=== PATIENT | male | born 1950 | race Caucasian/White ===

== ENCOUNTER → 2018-01-25 | Outpatient (CLI) | payer BC, SELFPAY ==
[~2018-01-25] MED LIST: ACYC5TO15G TOP; ALBU90OI INH; ALBU90OI61 INH; ASPI325; ASPI81CH PO; ASTRAGALUS; ASTRAGALUS EXT100 GM; BELPTAB PO; BENTYL20 MG PO; BUPR150ER PO; BUPR150T2; BUPR150T2 PO; BUSP5 PO; Budeprion Sr150 MG; CHOL10002 PO; CIPR500 PO; CYCL10 PO; DHEA 50 MG; DULO30 PO; Depo-Testos200 MG/ML INJ; Dicyclomine HCl20 MG PO; ESOM20; FAMO20 PO; FIBER LAXATIVE PO; FISH1000 PO; HYDACE5 PO; LIDO2L TOP; LORA.5 PO; METO10 PO; METO5A; MIRT30; MIRT30 PO; MULVITMIND PO; Multiple Vitam1 EAC1; NASACORT10.8 ML; NIAC500 PO; NIACIN FLUSH-F400 MG PO; OMEP20ER PO; OMEP40CA12 PO; ONDA4 PO; OTC MEDS; OXYACE5T; OXYACE5T PO; OXYC30 PO; POLY500 PO; PROC25S; PROC25S PR; PROM25; PROM25 PO; PROM25S PR; Phenergan25 MG PR; RXOXYACE PO; TAMS.4ER PO; TRAM50 PO; Ultram50 MG PO; VITAMIN D32000 UNIT; Voltaren100 GM TP; Zofran Odt4 MG SL; Zofran Odt8 MG SL
[2018-01-25 13:49] LABS: U Amphetamine Screen Not Detected; U Barbituate Screen Not Detected; U Benzodiazapine Screen Not Detected; U Cocaine Screen Not Detected; U Methadone Screen Not Detected; U Methamphetamine Screen Not Detected; U Opiates Screen Not Detected
[2018-01-25 13:50] LABS: U Buprenorphine Screen Not Detected; U Cannabinoids Screen DETECTED; U Oxycodone Screen DETECTED; U Phencyclidine Screen Not Detected; U Propoxyphene Screen Not Detected
== END | disposition home or self-care (01) ==
LOC: LAB 12:58 → LAB SHORT 12:58
PROVIDERS: Internal Medicine Hematology & Oncology
DX: Z51.81 Encounter for therapeutic drug level monitoring (principal); Z79.899 Other long term (current) drug therapy

== ENCOUNTER → 2018-08-09 | Outpatient (CLI) | payer BC ==
[2018-08-09 12:47] LABS: U Cannabinoids Screen DETECTED; U Oxycodone Screen DETECTED
[2018-08-09 12:48] LABS: U Amphetamine Screen Not Detected; U Barbituate Screen Not Detected; U Benzodiazapine Screen Not Detected; U Buprenorphine Screen Not Detected; U Cocaine Screen Not Detected; U Methadone Screen Not Detected; U Methamphetamine Screen Not Detected; U Opiates Screen Not Detected; U Phencyclidine Screen Not Detected; U Propoxyphene Screen Not Detected
== END | disposition home or self-care (01) ==
LOC: LAB 12:18 → LAB SHORT 12:18
PROVIDERS: Internal Medicine Hematology & Oncology
DX: Z51.81 Encounter for therapeutic drug level monitoring (principal); Z79.899 Other long term (current) drug therapy
CPT/HCPCS: G0480

== ENCOUNTER → 2018-11-01 | Outpatient (CLI) | payer BC ==
[2018-11-01 13:41] LABS: U Amphetamine Screen Not Detected; U Barbituate Screen Not Detected; U Benzodiazapine Screen Not Detected; U Buprenorphine Screen Not Detected; U Cannabinoids Screen DETECTED; U Cocaine Screen Not Detected; U Methadone Screen Not Detected; U Methamphetamine Screen Not Detected; U Opiates Screen Not Detected; U Oxycodone Screen DETECTED; U Phencyclidine Screen Not Detected; U Propoxyphene Screen Not Detected
== END | disposition home or self-care (01) ==
LOC: LAB SHORT 12:33 → LAB 12:33
PROVIDERS: Internal Medicine Hematology & Oncology
DX: F11.20 Opioid dependence, uncomplicated (principal); Z79.899 Other long term (current) drug therapy

== ENCOUNTER 2020-11-05 12:20 | Day surgery (SDC) | payer BC ==
[~2020-11-05] VITALS: Ht 177.8 cm; Wt 76.6 kg
== END 2020-11-05 14:51 | disposition home or self-care (01) ==
LOC: ORSCSDS 12:20
PROVIDERS: Surgery
PROC: 0DBH8ZX Excision of Cecum, Via Natural or Artificial Opening Endoscopic, Diagnostic (ICD-10-PCS; principal; 2020-11-05 13:30)
DX: Z12.11 Encounter for screening for malignant neoplasm of colon (principal); Z86.010 Personal history of colon polyps; D12.0 Benign neoplasm of cecum; K21.9 Gastro-esophageal reflux disease without esophagitis; E78.5 Hyperlipidemia, unspecified; I10 Essential (primary) hypertension; E03.9 Hypothyroidism, unspecified; Z79.899 Other long term (current) drug therapy; Z79.82 Long term (current) use of aspirin
CPT/HCPCS: 88305; J2704; J7040; J7120

== ENCOUNTER → 2021-07-08 | Outpatient (CLI) | payer BC ==
[2021-07-08 13:57] LABS: U Amphetamine Screen Not Detected; U Barbituate Screen Not Detected; U Benzodiazapine Screen Not Detected; U Buprenorphine Screen Not Detected; U Cannabinoids Screen DETECTED; U Cocaine Screen Not Detected; U Methadone Screen Not Detected; U Methamphetamine Screen Not Detected; U Opiates Screen Not Detected; U Phencyclidine Screen Not Detected
[2021-07-08 13:58] LABS: U Oxycodone Screen DETECTED; U Propoxyphene Screen Not Detected
== END | disposition home or self-care (01) ==
LOC: LAB 12:27 → LAB SHORT 12:27
PROVIDERS: Internal Medicine Hematology & Oncology
DX: Z51.81 Encounter for therapeutic drug level monitoring (principal); Z79.899 Other long term (current) drug therapy

== ENCOUNTER → 2021-12-15 | Outpatient (CLI) | payer BC | END | disposition home or self-care (01) | LOC: LAB SHORT 14:35 | DX: L57.0 Actinic keratosis (principal) | CPT/HCPCS: 88305 ==

== ENCOUNTER → 2022-02-17 | Outpatient (CLI) | payer BC ==
[2022-02-17 16:07] LABS: U Cannabinoids Screen DETECTED; U Opiates Screen DETECTED
[2022-02-17 16:08] LABS: U Amphetamine Screen Not Detected; U Barbituate Screen Not Detected; U Benzodiazapine Screen Not Detected; U Buprenorphine Screen Not Detected; U Cocaine Screen Not Detected; U Methadone Screen Not Detected; U Methamphetamine Screen Not Detected; U Oxycodone Screen DETECTED; U Phencyclidine Screen Not Detected; U Propoxyphene Screen Not Detected
== END | disposition home or self-care (01) ==
LOC: LAB SHORT 08:17 → LAB 08:17
PROVIDERS: Internal Medicine Hematology & Oncology
DX: Z51.81 Encounter for therapeutic drug level monitoring (principal); Z79.899 Other long term (current) drug therapy

== ENCOUNTER → 2022-03-17 | Outpatient (CLI) | payer BC ==
[2022-03-17 16:08] LABS: U Amphetamine Screen Not Detected; U Barbituate Screen Not Detected; U Benzodiazapine Screen Not Detected; U Buprenorphine Screen Not Detected; U Cannabinoids Screen DETECTED; U Cocaine Screen Not Detected; U Methadone Screen Not Detected; U Methamphetamine Screen Not Detected; U Opiates Screen DETECTED; U Oxycodone Screen DETECTED; U Phencyclidine Screen Not Detected; U Propoxyphene Screen Not Detected
[2022-03-22 08:09] LABS: TRICYCLIC ANTIDEP Negative ng/mL (Cutoff=100)
== END | disposition home or self-care (01) ==
LOC: LAB 10:13 → LAB SHORT 10:13
PROVIDERS: Internal Medicine Hematology & Oncology
DX: Z51.81 Encounter for therapeutic drug level monitoring (principal); Z79.899 Other long term (current) drug therapy

== ENCOUNTER → 2022-04-14 | Outpatient (CLI) | payer BC ==
[2022-04-14 13:55] LABS: U Amphetamine Screen Not Detected; U Barbituate Screen Not Detected; U Benzodiazapine Screen Not Detected; U Buprenorphine Screen Not Detected; U Cannabinoids Screen DETECTED; U Cocaine Screen Not Detected; U Methadone Screen Not Detected; U Methamphetamine Screen Not Detected; U Opiates Screen DETECTED; U Oxycodone Screen DETECTED; U Phencyclidine Screen Not Detected; U Propoxyphene Screen Not Detected
[2022-04-18 14:08] LABS: CARBOXY-THC >346 (.)
== END | disposition home or self-care (01) ==
LOC: LAB SHORT 11:37 → LAB 11:37
PROVIDERS: Internal Medicine Hematology & Oncology
DX: Z51.81 Encounter for therapeutic drug level monitoring (principal); Z79.899 Other long term (current) drug therapy

== ENCOUNTER → 2022-05-12 | Outpatient (CLI) | payer BC ==
[2022-05-12 13:44] LABS: U Amphetamine Screen Not Detected
[2022-05-12 13:45] LABS: U Barbituate Screen Not Detected; U Benzodiazapine Screen Not Detected; U Buprenorphine Screen Not Detected; U Cannabinoids Screen DETECTED; U Cocaine Screen Not Detected; U Methadone Screen Not Detected; U Methamphetamine Screen Not Detected; U Opiates Screen DETECTED; U Oxycodone Screen DETECTED; U Phencyclidine Screen Not Detected; U Propoxyphene Screen Not Detected
[2022-05-18 15:10] LABS: CARBOXY-THC >403 (.)
== END | disposition home or self-care (01) ==
LOC: LAB SHORT 10:30 → LAB 10:30
PROVIDERS: Internal Medicine Hematology & Oncology
DX: Z51.81 Encounter for therapeutic drug level monitoring (principal); Z79.899 Other long term (current) drug therapy
CPT/HCPCS: G0480

== ENCOUNTER → 2022-06-08 | Outpatient (CLI) | payer BC ==
[2022-06-08 14:23] LABS: U Amphetamine Screen Not Detected; U Barbituate Screen Not Detected; U Benzodiazapine Screen Not Detected; U Buprenorphine Screen Not Detected; U Cannabinoids Screen DETECTED; U Cocaine Screen Not Detected; U Methadone Screen Not Detected; U Methamphetamine Screen Not Detected; U Opiates Screen DETECTED; U Oxycodone Screen DETECTED; U Phencyclidine Screen Not Detected; U Propoxyphene Screen Not Detected
== END | disposition home or self-care (01) ==
LOC: LAB SHORT 11:28 → LAB 11:28
PROVIDERS: Internal Medicine Hematology & Oncology
DX: Z51.81 Encounter for therapeutic drug level monitoring (principal); Z79.899 Other long term (current) drug therapy

== ENCOUNTER → 2022-07-07 | Outpatient (CLI) | payer BC ==
[2022-07-07 12:58] LABS: U Amphetamine Screen Not Detected; U Barbituate Screen Not Detected; U Benzodiazapine Screen Not Detected; U Buprenorphine Screen Not Detected; U Cannabinoids Screen DETECTED; U Cocaine Screen Not Detected; U Methadone Screen Not Detected; U Methamphetamine Screen Not Detected; U Opiates Screen DETECTED; U Oxycodone Screen DETECTED; U Phencyclidine Screen Not Detected; U Propoxyphene Screen Not Detected
== END | disposition home or self-care (01) ==
LOC: LAB SHORT 12:21 → LAB 12:21
PROVIDERS: Internal Medicine Hematology & Oncology
DX: Z51.81 Encounter for therapeutic drug level monitoring (principal); Z79.899 Other long term (current) drug therapy

== ENCOUNTER → 2022-08-04 | Outpatient (CLI) | payer BC ==
[2022-08-04 15:32] LABS: U Amphetamine Screen Not Detected; U Barbituate Screen Not Detected; U Benzodiazapine Screen Not Detected; U Cocaine Screen Not Detected; U Methadone Screen Not Detected; U Methamphetamine Screen Not Detected; U Opiates Screen DETECTED
[2022-08-04 15:33] LABS: U Buprenorphine Screen Not Detected; U Cannabinoids Screen DETECTED; U Oxycodone Screen DETECTED; U Phencyclidine Screen Not Detected; U Propoxyphene Screen Not Detected
== END | disposition home or self-care (01) ==
LOC: LAB SHORT 10:25
PROVIDERS: Internal Medicine Hematology & Oncology
DX: Z51.81 Encounter for therapeutic drug level monitoring (principal); Z79.899 Other long term (current) drug therapy

== ENCOUNTER → 2022-09-01 | Outpatient (CLI) | payer BC ==
[2022-09-01 17:57] LABS: U Cannabinoids Screen DETECTED; U Opiates Screen DETECTED; U Oxycodone Screen DETECTED
[2022-09-01 17:58] LABS: U Amphetamine Screen Not Detected; U Barbituate Screen Not Detected; U Benzodiazapine Screen Not Detected; U Buprenorphine Screen Not Detected; U Cocaine Screen Not Detected; U Methadone Screen Not Detected; U Methamphetamine Screen Not Detected; U Phencyclidine Screen Not Detected; U Propoxyphene Screen Not Detected
== END | disposition home or self-care (01) ==
LOC: LAB 10:45 → LAB SHORT 10:45
PROVIDERS: Internal Medicine Hematology & Oncology
DX: Z51.81 Encounter for therapeutic drug level monitoring (principal); Z79.899 Other long term (current) drug therapy

== ENCOUNTER → 2022-09-29 | Outpatient (CLI) | payer BC ==
[2022-09-29 13:46] LABS: U Amphetamine Screen Not Detected; U Barbituate Screen Not Detected; U Benzodiazapine Screen DETECTED; U Buprenorphine Screen Not Detected; U Cannabinoids Screen DETECTED; U Cocaine Screen Not Detected; U Methadone Screen Not Detected; U Methamphetamine Screen Not Detected; U Opiates Screen DETECTED; U Oxycodone Screen DETECTED; U Phencyclidine Screen Not Detected; U Propoxyphene Screen Not Detected
== END | disposition home or self-care (01) ==
LOC: LAB 10:21 → LAB SHORT 10:21
PROVIDERS: Internal Medicine Hematology & Oncology
DX: Z51.81 Encounter for therapeutic drug level monitoring (principal); Z79.899 Other long term (current) drug therapy

== ENCOUNTER → 2022-10-28 | Outpatient (CLI) | payer BC | END | disposition home or self-care (01) | LOC: LAB SHORT 08:00 → LAB 08:00 | DX: R91.8 Other nonspecific abnormal finding of lung field (principal); J02.9 Acute pharyngitis, unspecified; Z79.899 Other long term (current) drug therapy | CPT/HCPCS: 88108; 88312 ==

== ENCOUNTER → 2022-11-03 | Outpatient (CLI) | payer BC | LOC: LAB SHORT 12:00 → LAB 12:00 | DX: J02.9 Acute pharyngitis, unspecified (principal); R91.8 Other nonspecific abnormal finding of lung field; Z79.899 Other long term (current) drug therapy | CPT/HCPCS: 87015; 87116; 87206 ==

== ENCOUNTER → 2022-11-24 | Outpatient (CLI) | payer BC ==
[2022-11-24 13:38] LABS: U Cannabinoids Screen DETECTED; U Opiates Screen DETECTED
[2022-11-24 13:39] LABS: U Amphetamine Screen Not Detected; U Barbituate Screen Not Detected; U Benzodiazapine Screen Not Detected; U Buprenorphine Screen Not Detected; U Cocaine Screen Not Detected; U Methadone Screen Not Detected; U Methamphetamine Screen Not Detected; U Oxycodone Screen DETECTED; U Phencyclidine Screen Not Detected; U Propoxyphene Screen Not Detected
== END | disposition home or self-care (01) ==
LOC: LAB SHORT 10:30
PROVIDERS: Internal Medicine Hematology & Oncology
DX: Z51.81 Encounter for therapeutic drug level monitoring (principal); Z79.899 Other long term (current) drug therapy

== ENCOUNTER → 2022-12-22 | Outpatient (CLI) | payer BC ==
[2022-12-22 18:26] LABS: U Amphetamine Screen Not Detected; U Barbituate Screen Not Detected; U Benzodiazapine Screen Not Detected; U Buprenorphine Screen Not Detected; U Cannabinoids Screen DETECTED; U Cocaine Screen Not Detected; U Methadone Screen Not Detected; U Methamphetamine Screen Not Detected; U Opiates Screen DETECTED; U Oxycodone Screen DETECTED; U Phencyclidine Screen Not Detected; U Propoxyphene Screen Not Detected
[2022-12-27 09:09] LABS: CARBOXY-THC >352 (.)
== END | disposition home or self-care (01) ==
LOC: LAB SHORT 10:41 → LAB 10:41
PROVIDERS: Internal Medicine Hematology & Oncology
DX: Z51.81 Encounter for therapeutic drug level monitoring (principal); Z79.899 Other long term (current) drug therapy
CPT/HCPCS: G0480

== ENCOUNTER → 2023-08-03 | Outpatient (CLI) | payer BC ==
[2023-08-03 16:18] LABS: U Amphetamine Screen Not Detected; U Barbituate Screen Not Detected; U Benzodiazapine Screen Not Detected; U Buprenorphine Screen Not Detected; U Cannabinoids Screen DETECTED; U Cocaine Screen Not Detected; U Methadone Screen Not Detected; U Methamphetamine Screen Not Detected; U Opiates Screen DETECTED; U Oxycodone Screen DETECTED; U Phencyclidine Screen Not Detected
== END | disposition home or self-care (01) ==
LOC: LAB SHORT 10:10 → LAB 10:10
PROVIDERS: Internal Medicine Hematology & Oncology
DX: Z51.81 Encounter for therapeutic drug level monitoring (principal); Z79.899 Other long term (current) drug therapy

== ENCOUNTER → 2023-08-31 | Outpatient (CLI) | payer BC ==
[2023-08-31 17:35] LABS: U Cannabinoids Screen DETECTED; U Oxycodone Screen DETECTED
[2023-08-31 17:36] LABS: U Amphetamine Screen Not Detected; U Barbituate Screen Not Detected; U Benzodiazapine Screen Not Detected; U Buprenorphine Screen Not Detected; U Cocaine Screen Not Detected; U Methadone Screen Not Detected; U Methamphetamine Screen Not Detected; U Opiates Screen Not Detected; U Phencyclidine Screen Not Detected
== END | disposition home or self-care (01) ==
LOC: LAB SHORT 15:14 → LAB 15:14
PROVIDERS: Internal Medicine Hematology & Oncology
DX: G89.29 Other chronic pain (principal); Z79.899 Other long term (current) drug therapy

== ENCOUNTER → 2023-09-28 | Outpatient (CLI) | payer BC ==
[2023-09-28 14:55] LABS: U Cannabinoids Screen DETECTED; U Opiates Screen DETECTED; U Oxycodone Screen DETECTED
[2023-09-28 14:56] LABS: U Amphetamine Screen Not Detected; U Barbituate Screen Not Detected; U Benzodiazapine Screen Not Detected; U Buprenorphine Screen Not Detected; U Cocaine Screen Not Detected; U Methadone Screen Not Detected; U Methamphetamine Screen Not Detected; U Phencyclidine Screen Not Detected
== END ==
LOC: LAB SHORT 11:05
PROVIDERS: Internal Medicine Hematology & Oncology
DX: G89.29 Other chronic pain (principal); I10 Essential (primary) hypertension; Z79.899 Other long term (current) drug therapy

== ENCOUNTER → 2024-01-19 | Outpatient (CLI) | payer BC ==
[~2024-01-19] MED LIST changes: -Budeprion Sr150 MG; +Budeprion Sr150 MG PO; +EUTHYROX50 MC1; +EUTHYROX50 MC1 PO; +GABA100 PO; +LOSARTAN POTASS25 M2 PO; +ONDA4ODT SL; +OXYC30ER; +TAMSULOSIN HCL0.4 M1 PO
[2024-01-19 16:00] LABS: U Amphetamine Screen Not Detected; U Barbituate Screen Not Detected; U Benzodiazapine Screen DETECTED; U Buprenorphine Screen Not Detected; U Cannabinoids Screen DETECTED; U Cocaine Screen Not Detected; U Methadone Screen Not Detected; U Methamphetamine Screen Not Detected; U Opiates Screen Not Detected; U Oxycodone Screen DETECTED; U Phencyclidine Screen Not Detected
== END | disposition home or self-care (01) ==
LOC: LAB SHORT 13:27 → LAB 13:27
PROVIDERS: Internal Medicine Hematology & Oncology
DX: Z51.81 Encounter for therapeutic drug level monitoring (principal); Z79.899 Other long term (current) drug therapy

== ENCOUNTER → 2024-02-06 | Outpatient (CLI) | payer BC ==
[2024-02-06 17:50] LABS: U Amphetamine Screen Not Detected; U Barbituate Screen Not Detected; U Benzodiazapine Screen Not Detected; U Buprenorphine Screen Not Detected; U Cannabinoids Screen DETECTED; U Cocaine Screen Not Detected; U Methadone Screen Not Detected; U Methamphetamine Screen Not Detected; U Opiates Screen DETECTED; U Oxycodone Screen DETECTED; U Phencyclidine Screen Not Detected
== END ==
LOC: LAB SHORT 15:36 → LAB 15:36
PROVIDERS: Internal Medicine Hematology & Oncology
DX: Z79.899 Other long term (current) drug therapy (principal)

== ENCOUNTER → 2024-04-03 | Outpatient (CLI) | payer BC ==
[2024-04-03 14:42] LABS: U Cannabinoids Screen DETECTED; U Oxycodone Screen DETECTED
[2024-04-03 14:43] LABS: U Amphetamine Screen Not Detected; U Barbituate Screen Not Detected; U Benzodiazapine Screen Not Detected; U Buprenorphine Screen Not Detected; U Cocaine Screen Not Detected; U Methadone Screen Not Detected; U Methamphetamine Screen Not Detected; U Opiates Screen Not Detected; U Phencyclidine Screen Not Detected
== END | disposition home or self-care (01) ==
LOC: LAB SHORT 11:40 → LAB 11:40
PROVIDERS: Internal Medicine Hematology & Oncology
DX: Z51.81 Encounter for therapeutic drug level monitoring (principal); Z79.899 Other long term (current) drug therapy

== ENCOUNTER → 2024-07-02 | Outpatient (CLI) | payer BC ==
[2024-07-02 17:29] LABS: U Amphetamine Screen Not Detected; U Barbituate Screen Not Detected; U Benzodiazapine Screen Not Detected; U Buprenorphine Screen Not Detected; U Cannabinoids Screen DETECTED; U Cocaine Screen Not Detected; U Methadone Screen Not Detected; U Methamphetamine Screen Not Detected; U Opiates Screen Not Detected; U Oxycodone Screen DETECTED; U Phencyclidine Screen Not Detected
== END ==
LOC: LAB SHORT 10:19 → LAB 10:19
PROVIDERS: Internal Medicine Hematology & Oncology
DX: Z51.81 Encounter for therapeutic drug level monitoring (principal); Z79.899 Other long term (current) drug therapy

== ENCOUNTER 2024-11-02 14:20 | Inpatient (IN) | payer MEDICARE, BC ==
[~2024-11-02] VITALS: Ht 177.8 cm; Wt 76.7 kg
[~2024-11-02 14:20] MED LIST changes: -OMEP40CA12 PO
[2024-11-02] MEDS ORDERED: Thiamine HCl 100 MG Tab PO ONE (14:45)
[2024-11-02] MEDS ORDERED: NS 1,000 ML IV SCH (14:45)
[2024-11-02] MEDS ORDERED: Folic Acid 1 MG TAB PO ONE ×2 (14:45→17:05)
[2024-11-02 14:57] LABS: BASOPHILS ABSOLUTE AUTO 0.04 K/mm3 (0.00-0.23); BASOPHILS PERCENT AUTO 0 % (0-2); EOSINOPHILS ABSOLUTE AUTO 0.07 K/mm3 (0.00-0.68); EOSINOPHILS PERCENT AUTO 1 % (0-6); Hematocrit 35.6 % (37.0-53.0); Hemoglobin 12.4 g/dL (13.5-17.5); IMMATURE GRAN ABSOLUTE AUTO 0.04 K/mm3 (0.00-0.10); IMMATURE GRAN PERCENT AUTO 0 % (0-1); LYMPHOCYTES ABSOLUTE AUTO 1.83 K/mm3 (0.84-5.20); LYMPHOCYTES PERCENT AUTO 19 % (21-46); MONOCYTES ABSOLUTE AUTO 0.89 K/mm3 (0.16-1.47); MONOCYTES PERCENT AUTO 9 % (4-13); Mean Corpuscular HGB 33.1 pg (26.0-34.0); Mean Corpuscular HGB Conc 34.8 g/dL (31.5-36.5); Mean Corpuscular Volume 95 fL (80-100); Mean Platelet Volume 8.9 fL (9.1-12.4); NEUTROPHILS ABSOLUTE AUTO 6.89 K/mm3 (1.96-9.15); NEUTROPHILS PERCENT AUTO 71 % (41-73); Platelet Count 235 K/mm3 (150-400); RDW Standard Deviation 42.1 fL (35.1-46.3); Red Blood Cell Count 3.75 M/mm3 (4.30-5.90); White Blood Cell Count 9.76 K/mm3 (4.00-11.30)
[2024-11-02 15:19] LABS: International Normalized Ratio 0.95; Prothrombin Time Results 10.2 Sec (9.7-11.5)
[2024-11-02 15:27] LABS: Ethanol (Alcohol), Blood, Med <3 mg/dL; Magnesium, Blood 2.3 mg/dL (1.6-2.4)
[2024-11-02 15:28] LABS: Alanine Aminotransfer (ALT/SGP 29 U/L (12-78); Albumin, Blood 4.1 g/dL (3.4-5.0); Albumin/Globulin Ratio 1.4 (0.8-1.8); Alk Phos 136 U/L (50-136); Anion Gap 11 mmol/L (3-11); Aspartate Aminotrans (AST/SGOT 28 U/L (12-37); Bilirubin, Total 1.1 mg/dL (0.1-1.0); Blood Urea Nitrogen 27 mg/dL (8-24); Bun/Creatinine Ratio 10.5 (12.0-20.0); CO2, Blood 23 mmol/L (21-32); Calcium, Blood 9.1 mg/dL (8.5-10.1); Chloride, Blood 99 mmol/L (98-108); Creatinine, Blood 2.58 mg/dL (0.60-1.20); Glomerular Filtration Rate 25 (60-); Glucose, Blood 95 mg/dL (70-99); Potassium, Blood 4.7 mmol/L (3.5-5.5); Sodium, Blood 128 mmol/L (136-145); Total Protein, Blood 7.1 g/dL (6.4-8.2)
[2024-11-02] MEDS ORDERED: Thiamine HCl 500 MG in NS 100 ML IV ONE (17:00)
[2024-11-02 17:29] LABS: Source, Urine Clean Catch
[2024-11-02 17:35] LABS: Appearance, Urine Clear (Clear); Bilirubin, Urine Neg (Neg); Blood, Urine 1+ (Neg); Color, Urine Yellow (P-Yellow); Glucose Qualitative, Urine Neg (Neg); Ketones, Urine Neg (Neg); Leukocyte Esterase, Urine 2+ (Neg); Nitrite, Urine Neg (Neg); Protein, Urine 1+ (Neg); Specific Gravity, Urine 1.005 (1.003-1.022); Urobilinogen, Urine NORM (Normal)
[2024-11-02 17:44] LABS: Bacteria Mod /hpf; Squamous Epithelial Cells Rare /hpf (Few)
[2024-11-02 17:50] LABS: U Amphetamine Screen Not Detected; U Barbituate Screen Not Detected; U Benzodiazapine Screen Not Detected; U Buprenorphine Screen Not Detected; U Cannabinoids Screen DETECTED; U Cocaine Screen Not Detected; U Methadone Screen Not Detected; U Methamphetamine Screen Not Detected; U Opiates Screen DETECTED; U Oxycodone Screen DETECTED; U Phencyclidine Screen Not Detected
[2024-11-02] MEDS ORDERED: Ondansetron HCl 2 MG / ML 2ML Vial IV PRN (18:20)
[2024-11-02] MEDS ORDERED: Lactated Ringer's 1,000 ML IV SCH ×2 (18:25→18:30)
[2024-11-02] MEDS ORDERED: Albuterol 2.5 MG/3 ML VIAL INH PRN (18:25)
[2024-11-02] MEDS ORDERED: Aspirin 325 MG Tab PO ONE (19:00)
[2024-11-02] MEDS ORDERED: CefTRIAXone Sodium 1,000 MG in NS 100 ML IV ONE (21:00)
[2024-11-02] MEDS ORDERED: NS 250 ML IV PRN (21:05)
--- NOTE | 2024-11-02 21:15 | NUR ---
TOOK REPORT FROM ED VIKA RAMOS @ 2820.
[2024-11-02 21:40] VITALS: BP 105/65
[2024-11-02] MEDS ORDERED: ATOR20 PO (22:09)
[2024-11-02 22:45] LABS: Bun/Creatinine Ratio 13.6 (12.0-20.0); Calcium, Blood 8.6 mg/dL (8.5-10.1); Creatinine, Blood 1.98 mg/dL (0.60-1.20); Potassium, Blood 4.2 mmol/L (3.5-5.5)
[2024-11-02] MEDS ORDERED: Tamsulosin HCl 0.4 MG Cap PO SCH (22:45)
[2024-11-02] MEDS ORDERED: Atorvastatin 10 MG Tab PO SCH (22:45)
[2024-11-03] MEDS ORDERED: Thiamine HCl 500 MG in NS 100 ML IV SCH
[2024-11-03 00:52] VITALS: BP 118/67
[2024-11-03 04:47] LABS: BASOPHILS ABSOLUTE AUTO 0.02 K/mm3 (0.00-0.23); BASOPHILS PERCENT AUTO 0 % (0-2); EOSINOPHILS ABSOLUTE AUTO 0.07 K/mm3 (0.00-0.68); EOSINOPHILS PERCENT AUTO 1 % (0-6); Hematocrit 33.3 % (37.0-53.0); Hemoglobin 11.3 g/dL (13.5-17.5); IMMATURE GRAN ABSOLUTE AUTO 0.03 K/mm3 (0.00-0.10); IMMATURE GRAN PERCENT AUTO 1 % (0-1); LYMPHOCYTES ABSOLUTE AUTO 1.42 K/mm3 (0.84-5.20); LYMPHOCYTES PERCENT AUTO 25 % (21-46); MONOCYTES ABSOLUTE AUTO 0.52 K/mm3 (0.16-1.47); MONOCYTES PERCENT AUTO 9 % (4-13); Mean Corpuscular HGB 32.8 pg (26.0-34.0); Mean Corpuscular HGB Conc 33.9 g/dL (31.5-36.5); Mean Corpuscular Volume 97 fL (80-100); Mean Platelet Volume 9.3 fL (9.1-12.4); NEUTROPHILS ABSOLUTE AUTO 3.61 K/mm3 (1.96-9.15); NEUTROPHILS PERCENT AUTO 64 % (41-73); Platelet Count 187 K/mm3 (150-400); RDW Standard Deviation 42.4 fL (35.1-46.3); Red Blood Cell Count 3.45 M/mm3 (4.30-5.90); White Blood Cell Count 5.67 K/mm3 (4.00-11.30)
[2024-11-03 04:50] VITALS: BP 101/73
[2024-11-03 05:01] LABS: Magnesium, Blood 2.4 mg/dL (1.6-2.4)
[2024-11-03 05:02] LABS: Bun/Creatinine Ratio 15.5 (12.0-20.0); Calcium, Blood 8.9 mg/dL (8.5-10.1); Creatinine, Blood 1.61 mg/dL (0.60-1.20)
--- NOTE | 2024-11-03 05:23 | NUR ---
SHIFT SUMMARY NOC PT A/O X 3-4. CONFUSED AND FORGETFUL AT TIMES. VSS. ADMIT FROM ED WITH DX OF RANDY/UTI AND POSSIBLE WERNICKES VS CVA. PT HAS ATAXIA NOTED WHEN TRYING TO GET UP OUT OF BED AND WHEN AMBULATING WITH FWW IN ROM WITH NURSE ASSIST. PT PUPILS ALSO MILDLY SLUGGISH. PT REPORTS LAST DRINK WAS 11/01/24 AFTERNOON AND STATES THAT THEY DRINK 2 BOTTLES OF WINE DAILY. CIWA SCORE 5 FOR FELT TREMOR BUE AND FOR 4 FOR VISUAL HALLUCINATION OF SEEING A CAT, THE PT STATES THAT THEY HAVE A FERAL CAT COLONY ON THEIR PROPERTY. PT CAN BE IMPULSIVE AT TIMES AND HAS 1:[address] FOR SAFETY DUE TO ATAXIA UNSTEADY GAIT AND HX OF RECENT FALLS. PT ON TELE SINUS RHYTHM IN 70'S. PT RECEIVING IVF LR @ 150 ML/HR, WELL FOLIC ACID/THIAMINE THERAPY, AND IV ABX FOR UTI. PT CURRENTLY RESTING WITH SITTER, BED ALARM, AND BED IN LOWEST POSITION, AND CALL LIGHT WITHIN REACH.
[2024-11-03] MEDS ORDERED: Omeprazole 20 MG CapCR PO SCH (06:00)
[2024-11-03] MEDS ORDERED: Levothyroxine Sodium 0.05 MG Tab PO SCH (06:00)
--- NOTE | 2024-11-03 06:18 | NUR ---
SHIFT SUMMARY NOC PT A/O X 3-4. CONFUSED AND FORGETFUL AT TIMES. VSS. ADMIT FROM ED WITH DX OF RANDY/UTI AND POSSIBLE WERNICKES VS CVA. PT HAS MRI SCHEDULED FOR TODAY. PT HAS ATAXIA NOTED WHEN TRYING TO GET UP OUT OF BED AND WHEN AMBULATING WITH FWW IN ROM WITH NURSE ASSIST. PT PUPILS ALSO MILDLY SLUGGISH. PT REPORTS LAST DRINK WAS 11/01/24 AFTERNOON AND STATES THAT THEY DRINK 2 BOTTLES OF WINE DAILY. CIWA SCORE 5 FOR FELT TREMOR BUE AND FOR 4 FOR VISUAL HALLUCINATION OF SEEING A CAT, THE PT STATES THAT THEY HAVE A FERAL CAT COLONY ON THEIR PROPERTY. PT CAN BE IMPULSIVE AT TIMES AND HAS 1:[address] FOR SAFETY DUE TO ATAXIA UNSTEADY GAIT AND HX OF RECENT FALLS. PT ON TELE SINUS RHYTHM IN 70'S. PT RECEIVING IVF LR @ 150 ML/HR, WELL FOLIC ACID/THIAMINE THERAPY, AND IV ABX FOR UTI. PT CURRENTLY RESTING WITH SITTER, BED ALARM, AND BED IN LOWEST POSITION, AND CALL LIGHT WITHIN REACH.
[2024-11-03] MEDS ORDERED: Heparin Sodium,Porcine 5,000 UNIT/0.5 ML SDV SC SCH (09:00)
[2024-11-03] MEDS ORDERED: Tamsulosin HCl 0.4 MG Cap PO SCH (09:00)
[2024-11-03] MEDS ORDERED: Aspirin 81 MG Chew PO SCH (09:00)
[2024-11-03] MEDS ORDERED: Diazepam 2 MG Tab PO STA (09:52)
[2024-11-03] MEDS ORDERED: Gabapentin 100 MG Cap PO PRN (09:55)
[2024-11-03] MEDS ORDERED: OxyCODONE HCL 30 MG TAB (Immediate Release) PO PRN (10:00)
[2024-11-03] MEDS ORDERED: Diazepam 2 MG Tab PO SCH (11:30)
[2024-11-03] MEDS ORDERED: LORazepam 2 MG/ML 1ML Injection IV PRN (16:45)
[2024-11-03] MEDS ORDERED: ChlordiazePOXIDE 25 MG Cap PO PRN (16:45)
--- NOTE | 2024-11-03 17:26 | NUR ---
SHIFT SUMMARY: PATIENT A/OX3-4, PLEASANT AND COOPERATIVE c CARE. PATIENT DENIES CP/PRESSURE, SOB, N/V AND DIZZINESS. PATIENT ON TELE, SR HR IN THE 70'S BPM c OCCASIONAL 1ST DHB. PATIENT CIWA SCORE 2 THIS SHIFT. PATIENT MRI DONE TODAY, AWAITING FOR RESULT. PATIENT MEDICATED FOR CHRONIC BACK PAIN PER EMAR c GOOD EFFECT. PATIENT HAS GOOD APPETITE, CONTINENT OF BOWEL/BLADDER, AMBULATES TO BATHROOM c SBA/FWW. VITAL SIGNS REVIEWED. BED ALARM ON FOR SAFETY. CALL LIGHT IN REACH.
[2024-11-03 19:57] VITALS: BP 132/70
[2024-11-03] MEDS ORDERED: Atorvastatin 10 MG Tab PO SCH (21:00)
[2024-11-03] MEDS ORDERED: CefTRIAXone Sodium 1,000 MG in NS 100 ML IV SCH (21:00)
[2024-11-04 00:40] VITALS: BP 122/70
[2024-11-04 05:07] VITALS: BP 106/69
--- NOTE | 2024-11-04 05:16 | NUR ---
SHIFT SUMMARY NOC PT A/O X 4. PLEASANT AND COOPERATIVE WITH CARE. VSS. CIWA SCORE 1. PT MENTATION HAS CLEARED SINCE ADMIT PRIOR NIGHT. PT IS USING CALL LIGHT APPROPRIATELY AND ANSWERING QUESTIONS W/O ISSUE. PT ON TELE SINUS RHYTHM/1DHB IN 70'S. LR INFUSING @ 150 ML/HR. PT TOOK SHOWER WITH SET UP ASSISTANCE. PT STATES THAT THEY FEEL LIKE THEY ARE READY FOR DISCHARGE TODAY. PT CURRENTLY RESTING WITH BED IN LOWEST POSITION, AND CALL LIGHT WITHIN REACH.
[2024-11-04 05:34] LABS: Albumin, Blood 3.2 g/dL (3.4-5.0); Anion Gap 9 mmol/L (3-11); Blood Urea Nitrogen 16 mg/dL (8-24); Bun/Creatinine Ratio 16.7 (12.0-20.0); CO2, Blood 23 mmol/L (21-32); Calcium, Blood 8.6 mg/dL (8.5-10.1); Chloride, Blood 110 mmol/L (98-108); Creatinine, Blood 0.96 mg/dL (0.60-1.20); Glomerular Filtration Rate 83 (60-); Glucose, Blood 105 mg/dL (70-99); Phosphorus, Blood 2.9 mg/dL (2.5-4.9); Potassium, Blood 3.7 mmol/L (3.5-5.5); Sodium, Blood 138 mmol/L (136-145)
[2024-11-04 07:35] VITALS: BP 122/73
[2024-11-04] MEDS ORDERED: buPROPion HCL 150 MG TAB.SR.12H PO SCH (09:00)
--- NOTE | 2024-11-04 12:00 | NUR ---
Upon receiving a referral for spiritual care, I visited the patient. He shares with me about his medical issues, his struggle with alcoholism and his goal to discharge from the hospital this day. He goes into depth of explaining about the abundance of loss, deaths (spouse 16 months ago) and challenging life events. We also explored; the 30 yrs of successful sobriety and the keys to that success, the people and resources he has available to help him succeed and the deeper questions of meaning, purpose and spirituality. He spoke of the solid support of his two sons and their families and that he lives less than 50 yds away from his youngest son. I provided therapeutic listening, gentle anger control counselor and prayer. The patient responded well and showed signs of catharsis and greater hope for his future. I will continue to remain available to the patient and family.
[2024-11-04] MEDS ORDERED: MULVITA PO (12:01)
[2024-11-04] MEDS ORDERED: B-1100 M1 PO (12:02)
--- NOTE | 2024-11-04 12:45 | NUR ---
DISCHARGE: PT D/C @ 1240 INDEPEDENTLY WITH SON AND FRIEND. IV REMOVED BY SOCIAL GROUP WORKER W/O COMPLICATIONS. TELE SENT BACK. PT SON STATES PT NECKLACE AND RING WERE TAKEN BY FAMILY. MEDICATIONS FAXED TO [facility]. NO QUESTIONS AT TIME OF D/C.
== END 2024-11-04 12:38 | disposition home health service (06) | DRG 682 ==
LOC: ER 14:20 → MEDS 18:29 → ERHOLD 18:29 → MEDS 21:36
PROVIDERS: Emergency Medicine; Internal Medicine; Nurse Practitioner Acute Care; ADMIT Internal Medicine
PROC: HZ2ZZZZ Detoxification Services for Substance Abuse Treatment (ICD-10-PCS; principal; 2024-11-02)
DX: N17.9 Acute kidney failure, unspecified (principal); G92.8 Other toxic encephalopathy; N39.0 Urinary tract infection, site not specified; M62.82 Rhabdomyolysis; E87.1 Hypo-osmolality and hyponatremia; E86.0 Dehydration; I10 Essential (primary) hypertension; E78.5 Hyperlipidemia, unspecified; F10.20 Alcohol dependence, uncomplicated; E03.9 Hypothyroidism, unspecified; N40.0 Benign prostatic hyperplasia without lower urinary tract symptoms; K21.9 Gastro-esophageal reflux disease without esophagitis; J44.9 Chronic obstructive pulmonary disease, unspecified; G89.4 Chronic pain syndrome; Y90.0 Blood alcohol level of less than 20 mg/100 ml; Z88.1 Allergy status to other antibiotic agents; Z87.891 Personal history of nicotine dependence
CPT/HCPCS: 36415; 51798; 70450; 70496; 70498; 70551; 71045; 76770; 80048; 80053; 80069; 80320; 81001; 82550; 83735; 84484; 85025; 85610; 85730; 87040; 87086; 93005; 93010; 94640; 94664; 94760; 96365; 97116; 97161; 97530; 99285-25; A9270; J0696; J1644; J3411; J7030; J7050; J7120; Q9967

== ENCOUNTER → 2024-12-05 | Outpatient (CLI) | payer BC ==
[~2024-12-05] MED LIST changes: +ATOR20 PO; +B-1100 M1 PO; +MULVITA PO
[2024-12-05 15:13] LABS: U Amphetamine Screen Not Detected; U Barbituate Screen Not Detected; U Benzodiazapine Screen Not Detected; U Buprenorphine Screen Not Detected; U Cannabinoids Screen DETECTED; U Cocaine Screen Not Detected; U Methadone Screen Not Detected; U Methamphetamine Screen Not Detected; U Opiates Screen DETECTED; U Oxycodone Screen DETECTED; U Phencyclidine Screen Not Detected
== END ==
LOC: LAB SHORT 11:42 → LAB 11:42
PROVIDERS: Internal Medicine Hematology & Oncology
DX: Z51.81 Encounter for therapeutic drug level monitoring (principal); Z79.899 Other long term (current) drug therapy

== ENCOUNTER → 2025-04-24 | Outpatient (CLI) | payer BC ==
[2025-04-24 15:49] LABS: U Amphetamine Screen Not Detected; U Barbituate Screen Not Detected; U Benzodiazapine Screen Not Detected; U Buprenorphine Screen Not Detected; U Cannabinoids Screen Not Detected; U Cocaine Screen Not Detected; U Methadone Screen Not Detected; U Methamphetamine Screen Not Detected; U Opiates Screen Not Detected; U Oxycodone Screen DETECTED; U Phencyclidine Screen Not Detected
== END ==
LOC: LAB SHORT 14:43 → LAB 14:43
PROVIDERS: Internal Medicine Hematology & Oncology
DX: M54.16 Radiculopathy, lumbar region (principal); G89.29 Other chronic pain

== ENCOUNTER 2025-06-01 15:12 | Emergency (ER) | payer BC ==
[~2025-06-01] VITALS: Ht 177.8 cm; Wt 73.5 kg
[2025-06-01 15:52] LABS: BASOPHILS ABSOLUTE AUTO 0.05 K/mm3 (0.00-0.23); BASOPHILS PERCENT AUTO 0 % (0-2); EOSINOPHILS ABSOLUTE AUTO 0.06 K/mm3 (0.00-0.68); EOSINOPHILS PERCENT AUTO 0 % (0-6); Hematocrit 35.2 % (37.0-53.0); Hemoglobin 12.1 g/dL (13.5-17.5); IMMATURE GRAN ABSOLUTE AUTO 0.06 K/mm3 (0.00-0.10); IMMATURE GRAN PERCENT AUTO 0 % (0-1); LYMPHOCYTES ABSOLUTE AUTO 2.14 K/mm3 (0.84-5.20); LYMPHOCYTES PERCENT AUTO 14 % (21-46); MONOCYTES ABSOLUTE AUTO 1.11 K/mm3 (0.16-1.47); MONOCYTES PERCENT AUTO 7 % (4-13); Mean Corpuscular HGB Conc 34.4 g/dL (31.5-36.5); Mean Corpuscular Volume 95 fL (80-100); NEUTROPHILS ABSOLUTE AUTO 12.32 K/mm3 (1.96-9.15); NEUTROPHILS PERCENT AUTO 78 % (41-73); NRBC ABSOLUTE 0.00 K/mm3 (0.00-0.02); NRBC Auto 0.0 /100 WBC (0.0-0.2); Platelet Count 248 K/mm3 (150-400); RDW Coefficient Variation 12.4 % (11.7-14.2); RDW Standard Deviation 42.9 fL (35.1-46.3)
[2025-06-01 16:10] LABS: Alanine Aminotransfer (ALT/SGP 25.0 U/L (12-78); Albumin, Blood 3.8 g/dL (3.4-5.0); Albumin/Globulin Ratio 1.1 (0.8-1.8); Anion Gap 11.0 mmol/L (3-11); Aspartate Aminotrans (AST/SGOT 12.0 U/L (12-37); Bilirubin, Total 0.8 mg/dL (0.1-1.0); Blood Urea Nitrogen 11.0 mg/dL (8-24); CO2, Blood 25.0 mmol/L (21-32); Calcium, Blood 8.9 mg/dL (8.5-10.1); Chloride, Blood 100.0 mmol/L (98-108); Creatinine, Blood 1.1 mg/dL (0.60-1.20); Globulin, Blood 3.6 g/dL (2.2-4.0); Glucose, Blood 96.0 mg/dL (70-99); Potassium, Blood 4.3 mmol/L (3.5-5.5); Sodium, Blood 132.0 mmol/L (136-145); Total Protein, Blood 7.4 g/dL (6.4-8.2)
[2025-06-01 16:47] VITALS: BP 104/66
[2025-06-01] MEDS ORDERED: Percocet 5-3251 EACH PO (17:02)
== END 2025-06-01 18:07 | disposition left against medical advice (07) ==
LOC: ER 15:12
PROVIDERS: Physician Assistant
DX: S72.115A Nondisplaced fracture of greater trochanter of left femur, initial encounter for closed fracture (principal); F17.200 Nicotine dependence, unspecified, uncomplicated; Z53.29 Procedure and treatment not carried out because of patient's decision for other reasons; Z88.1 Allergy status to other antibiotic agents; Z79.890 Hormone replacement therapy; Z79.82 Long term (current) use of aspirin; Z79.899 Other long term (current) drug therapy; Z59.89 Other problems related to housing and economic circumstances; X58.XXXA Exposure to other specified factors, initial encounter
CPT/HCPCS: 80053; 85025; 99284-25